=== PATIENT | male | born 1990 | race Caucasian/White ===

== ENCOUNTER 2016-10-23 11:53 | Emergency (ER) | payer OTHER ==
[~2016-10-23] VITALS: Ht 175.3 cm; Wt 68.0 kg
[2016-10-23 11:55] VITALS: BP 116/78
[2016-10-23] MEDS ORDERED: FLEXERIL PO (12:23)
== END 2016-10-23 14:08 | disposition home or self-care (01) ==
LOC: ER 11:53
DX: G25.81 Restless legs syndrome (principal); F10.99 Alcohol use, unspecified with unspecified alcohol-induced disorder